=== PATIENT | female | born 1960 | race Caucasian/White ===

== ENCOUNTER 2017-03-08 21:32 | Emergency (ER) | payer OTHER ==
--- NOTE | ~2017-03-08 | CR72 ---
[facility] A Service of [facility] RADIOLOGY TEXT RESULTS PATIENT: CLAUDIA SPAULDING LOCATION: [facility] : 60 UNIT #: [id number] AGE: [address]: Wandy Ca MD SEX: F ORDER DR: [id number] [facility]. [place], [place] [address] [id number] MR#: [id number] Acc #: [id number] NAME: CLAUDIA SPAULDING : 1960 SEX: F STUDY DATE/TIME: 03/08/2017 22:50 UNIT: NEREYDA ROOM: STUDY DESCRIPTION: CR Chest Single View Portable Attending Physician: Wandy Ca M.D. Ordering Physician: Wandy Ca M.D. Primary Care Physician: No Primary Care Physician MEDICAL IMAGING REPORT This report is preliminary unless electronic signature is present EXAM Frontal chest 03/08/2017 INDICATIONS 56-year-old female with shortness of air for 4 weeks, flu-like symptoms. History of brain tumor, nausea vomiting diarrhea. History of ovarian cancer. History of tobacco abuse. TECHNIQUE Frontal chest no comparisons. FINDINGS Cardiac silhouette borderline in size. Vascularity unremarkable. There is old healed granulomatous disease. Interstitial prominence suggestive of fibrosis and scarring bilaterally with a lower lung zone predominance. There is more confluent scarring, atelectasis or faint infiltrate in the infrahilar lower lung zone. Correlate with signs or symptoms of potential early or developing pneumonia. Follow up to clearing recommended. We have no comparisons. IMPRESSION 1. Background changes of chronic interstitial lung disease and old healed granulomatous disease. There is more confluent fibrosis/scarring or potentially developing infiltrate or atelectasis in the infrahilar lower lung zone on the right. Without prior studies for comparison chronicity is unclear. Correlate with physical exam findings. Follow up to clearing after appropriate therapy is recommended. Dictated by... Grant Sanchez M.D. [facility] A Service of [facility] RADIOLOGY TEXT RESULTS PATIENT: CLAUDIA SPAULDING LOCATION: [facility] : 60 UNIT #: [id number] AGE: [address]: Wandy Ca MD SEX: F ORDER DR: THIS IS AN ELECTRONICALLY VERIFIED REPORT Grant Sanchez M.D. at 03/09/2017 8:40 PM TRUDI/sheron TD: 03/09/2017 00:09 JOB #: [id number] MEDICAL IMAGING REPORT Page 1 of 1 COPY
[2017-03-08 23:10] LABS: BASOPHIL% 0.2 % (0-2.5); EOSINOPHIL# 0.1 X10e3 (0-0.7); EOSINOPHIL% 1.7 % (0.0-7.0); HEMATOCRIT 33.3 % (35.0-45.0); HEMOGLOBIN 11.2 gm/dL (12.0-16.0); LYMPHOCYTE# 1.1 X10e3 (1.0-3.5); LYMPHOCYTE% 20.7 % (17.0-45.0); MEAN CELL VOLUME 84.1 FL (83-96); MEAN CORPUSCULAR HEMOGLOBIN 28.3 PG (28-34); MEAN CORPUSCULAR HGB CONC 33.6 g/dL (30-36); MEAN PLATELET VOLUME 9.6 FL (6.5-11.5); MONOCYTE# 0.4 X10e3 (0-1.0); MONOCYTE% 7.8 % (3.0-12.0); NEUTROPHIL# 3.8 X10e3 (1.5-7.1); NEUTROPHIL% 69.6 % (40-75); PLATELET COUNT 211 X10e3 (140-420); RED BLOOD COUNT 3.96 X10e (3.90-5.30); RED CELL DISTRIBUTION WIDTH 13.7 % (11.0-15.5); WHITE BLOOD COUNT 5.5 X10e3 (4.0-10.5)
[2017-03-08 23:12] LABS: DIFF IND NO
[2017-03-08 23:31] LABS: BUN/CREATININE RATIO 18.75; CALCIUM SERUM 8.7 mg/dL (8.4-10.2); CREATININE SERUM 0.8 mg/dL (0.6-1.4); GLOM FILT RATE Estimated 82.5 mL/min (>60); POTASSIUM 3.4 mmol/L (3.5-5.1)
== END 2017-03-09 00:59 | disposition home or self-care (01) ==
LOC: CED 21:32
PROVIDERS: Emergency Medicine
DX: J20.9 Acute bronchitis, unspecified (principal)
CPT/HCPCS: 36415; 71010; 80048; 85025; 94640; 99284